=== PATIENT | female | born 1960 | race Caucasian/White ===

== ENCOUNTER 2017-03-02 02:41 | Emergency (ER) | payer BC ==
--- NOTE | 2017-03-02 02:46 | EDPHY ---
H & P HPI/ROS: HPI CHIEF COMPLAINT: Abrasion left hip, left palm abrasion/laceration HISTORY OF PRESENT ILLNESS: This patient very pleasant 56-year-old female no significant medical history, no surgical history, tetanus shot up-to-date presents emergency room after she took a mechanical trip and fall while hiking around 5:00 p.m. this evening. She has a deep abrasion of the left palmar hand and abrasions to her left hip. She is here out of concern that she may have not clean her left palmar hand abrasion/ flap laceration well enough. No signs of infection. She does tell me that her left hip hurts on her skin. She is able to ambulate without difficulty. No in her hip pain. Denies head strike or neck pain or chest pain or shortness of breath. Denies syncope. Past Medical History: No significant medical history Past Surgical History: No significant surgical history Social History: Denies daily use drugs alcohol tobacco products Family History: noncontributory ROS REVIEW OF SYSTEMS: A comprehensive 10 point review of systems is otherwise negative aside from elements mentioned in the history of present illness. Exam Constitutional triage nursing summary reviewed, vital signs reviewed, awake/ alert. Eyes normal conjunctivae and sclera, EOMI, PERRLA. HENT normal inspection, atraumatic, moist mucus membranes, no epistaxis, neck supple/ no meningismus, no raccoon eyes. Respiratory clear to auscultation bilaterally, normal breath sounds, no respiratory distress, no wheezing. Cardiovascular rate normal, regular rhythm, no murmur, no edema, distal pulses normal. Gastrointestinal soft, non-tender, no rebound, no guarding, normal bowel sounds, no distension, no pulsatile mass. Genitourinary no CVA tenderness. Musculoskeletal no midline vertebral tenderness, full range of motion, no calf swelling, no tenderness of extremities, no meningismus, good pulses, neurovascularly intact. Skin abrasions left hip, soft tissue contusion, full range of motion left hip , neurovascular intact, left hand palmar aspect below the 5th metacarpal corner of the hand there is a flap laceration that appears clean, dry and intact. Approximately less than 2 cm, no signs of debris, pink, warm, & dry, no rash Neurologic awake, alert and oriented x 3, AAOx3, moves all 4 extremities equally, motor intact, sensory intact, CN II-XII intact, normal cerebellar, normal vision, normal speech. Psychiatric normal mood/affect. Heme/Lymph/Immune no lymphadenopathy. Differential Diagnosis:plan for this patient multiple abrasions, wound care, soft tissue injury foreign body Medical Decision Making: Patient has abrasions and hand will be copiously irrigating clean. Explored for foreign bodies. Tetanus shot is already updated. No laceration that needs to be repaired. Re-evaluation: 0348: Wounds been clean. Nothing to be repaired no laceration. No foreign body seen. Patient understands watch her wound closely for signs of infection. Return emergency room if there is any signs of infection this is redness, swelling, drainage, pus. Patient understands Source: Patient Constitutional: Initial Vital Signs Temperature (C) 36.9 C 03/02/17 02:55 Heart Rate 68 03/02/17 02:55 Respiratory Rate 14 03/02/17 02:55 Blood Pressure 143/89 H 03/02/17 02:55 O2 Sat (%) 95 03/02/17 02:55 O2 Delivery Mode Room Air Allergies/Adverse Reactions: amoxicillin [From Augmentin] Allergy (Verified 03/02/17 02:54) clavulanic acid [From Augmentin] Allergy (Verified 03/02/17 02:54) Sulfa (Sulfonamide Antibiotics) Allergy (Verified 03/02/17 02:54) Home Medications: Medication Instructions Recorded Estrogen And Progesterone Cream 03/02/17 Departure - Departure Disposition: Home, Routine, Self-Care Clinical Impression: Abrasions of multiple sites Condition: Good Instructions: Abrasion (ED) Additional Instructions: 1 Keep her wounds clean, dry and protected. 2.Watch him closely for signs of infection if you see drainage, yellow, redness worsening swelling or pus or significant pain return emergency room. Referrals: ROSALINA WOLFE [Other] - As per Instructions
[2017-03-02 02:57] VITALS: BP 143/89; PULSE 68; RESP 14; TEMP 98.4; O2SAT 95
== END 2017-03-02 03:50 | disposition home or self-care (01) ==
DX: S70.212A Abrasion, left hip, initial encounter (principal); S60.512A Abrasion of left hand, initial encounter; W01.0XXA Fall on same level from slipping, tripping and stumbling without subsequent striking against object, initial encounter; Y99.8 Other external cause status; Y93.01 Activity, walking, marching and hiking